=== PATIENT | female | born 1965 | race Caucasian/White ===

== ENCOUNTER 2021-06-25 08:51 | Outpatient (CLI) | payer SELFPAY ==
[2021-06-25 10:43] LABS: Hemoglobin 6.9 g/dL (12.0-15.5); Mean Corpuscular HGB CONC 28.6 g/dL (32.0-36.0); Mean Corpuscular Volume 94.1 fl (81.6-98.3); Mean Platelet Volume 9.7 fl (7.4-10.4); Platelet Count 503 10x3/uL (150-450); RBC Distribution Width 17.2 % (11.5-14.5); Red Blood Cell (RBC) Count 2.56 10x6/uL (3.90-5.03); White Blood Cell (WBC) Count 3.6 10x3/uL (3.5-10.5)
[2021-06-25 10:58] LABS: BHCG - Serum Negative (NEGATIVE); Pregs Control Background? CLEAR/WHITE (CLR/WHITE); Pregs Control Bar Appear? YES (CONTROL BAR)
[2021-06-25 19:08] LABS: SARS-CoV-2 PCR by NAA DETECTED (NotDetected)
== END 2021-06-25 08:52 | disposition home or self-care (01) ==
LOC: CSHLAB 08:51
PROVIDERS: ATTEND Obstetrics & Gynecology
DX: U07.1 COVID-19 (principal); N92.0 Excessive and frequent menstruation with regular cycle; D64.9 Anemia, unspecified; D25.9 Leiomyoma of uterus, unspecified
CPT/HCPCS: 84703; 85027; 86850; 86900; 86901; U0003; U0005

== ENCOUNTER 2021-06-30 07:30 | Day surgery (SDC) | payer OTHER ==
[2021-06-23 15:17] VITALS: BMI 24.7
[2021-06-25 10:43] LABS: Hemoglobin 6.9 g/dL (12.0-15.5); Mean Corpuscular HGB CONC 28.6 g/dL (32.0-36.0); Mean Corpuscular Volume 94.1 fl (81.6-98.3); Mean Platelet Volume 9.7 fl (7.4-10.4); Platelet Count 503 10x3/uL (150-450); RBC Distribution Width 17.2 % (11.5-14.5); Red Blood Cell (RBC) Count 2.56 10x6/uL (3.90-5.03); White Blood Cell (WBC) Count 3.6 10x3/uL (3.5-10.5)
[2021-06-25 10:58] LABS: BHCG - Serum Negative (NEGATIVE); Pregs Control Background? CLEAR/WHITE (CLR/WHITE); Pregs Control Bar Appear? YES (CONTROL BAR)
[2021-06-25 19:08] LABS: SARS-CoV-2 PCR by NAA DETECTED (NotDetected)
[2021-06-30] MEDS ORDERED: Gabapentin 300 MG CAP ONE (08:25)
[2021-06-30] MEDS ORDERED: Lidocaine 1% MPF 2 ML VIAL ONE (08:25)
[2021-06-30] MEDS ORDERED: Famotidine/PF 20 mg/2ml Vial ONE (08:26)
[2021-06-30] MEDS ORDERED: CeleCOXIB 100 MG CAP ONE (08:26)
[2021-06-30] MEDS ORDERED: EPINEPHrine 1 MG/ML AMP ONE (10:30)
[2021-06-30] MEDS ORDERED: Bupivacaine PF 0.5% 30 ML VIAL ONE (10:31)
[2021-06-30] MEDS ORDERED: Lidocaine 1% PF 5 ML VIAL ONE (11:53)
[2021-06-30] MEDS ORDERED: Ondansetron PF 4 MG/2 ML Vial ONE (11:53)
[2021-06-30] MEDS ORDERED: Fentanyl 250 MCG/5 ML VIAL ONE (11:53)
[2021-06-30] MEDS ORDERED: Glycopyrrolate 0.2 MG/ML 5 ML SYRINGE ONE (11:53)
[2021-06-30] MEDS ORDERED: Ketorolac Tromethamine 30 MG/ML VIAL ONE (11:53)
[2021-06-30] MEDS ORDERED: Rocuronium Bromide 10 MG/ML (10ML VIAL) ONE (11:53)
[2021-06-30] MEDS ORDERED: PROPOFOL 20 ML ONE ×2 (11:53→13:54)
[2021-06-30] MEDS ORDERED: Dexamethasone 4 mg/ml Vial ONE (11:53)
[2021-06-30] MEDS ORDERED: Midazolam HCl 2 mg/2 ml Vial ONE (11:53)
[2021-06-30] MEDS ORDERED: Lidocaine 4% PF 5 ML AMP ONE (11:56)
[2021-06-30] MEDS ORDERED: ceFAZolin 2 GM/Dextrose 50 ML IVPB ONE (12:11)
[2021-06-30] MEDS ORDERED: ePHEDrine Sulfate 50 MG/10 ML VIAL ONE (12:42)
[2021-06-30] MEDS ORDERED: Ropivacaine 0.2% 550 ML 750 ML NERVE BLCK SCH (15:00)
[2021-06-30] MEDS ORDERED: Fentanyl 100 MCG/2 ML VIAL ONE (16:13)
[2021-06-30 18:03] LABS: Hemoglobin 8.1 g/dL (12.0-15.5); Mean Corpuscular HGB CONC 29.5 g/dL (32.0-36.0); Mean Corpuscular Hemoglobin 26.5 pg (27.0-33.0); Mean Corpuscular Volume 89.9 fl (81.6-98.3); Mean Platelet Volume 9.7 fl (7.4-10.4); Platelet Count 369 10x3/uL (150-450); RBC Distribution Width 15.7 % (11.5-14.5); Red Blood Cell (RBC) Count 3.06 10x6/uL (3.90-5.03); White Blood Cell (WBC) Count 12.2 10x3/uL (3.5-10.5)
== END 2021-06-30 20:10 | disposition home or self-care (01) ==
LOC: CSHSDC 07:30
PROVIDERS: ATTEND Obstetrics & Gynecology
PROC: 0UT94ZZ Resection of Uterus, Percutaneous Endoscopic Approach (ICD-10-PCS; principal; 2021-06-30)
PROC: 0UT74ZZ Resection of Bilateral Fallopian Tubes, Percutaneous Endoscopic Approach (ICD-10-PCS; principal; 2021-06-30)
DX: D25.9 Leiomyoma of uterus, unspecified (principal); N73.6 Female pelvic peritoneal adhesions (postinfective); D64.9 Anemia, unspecified; U07.1 COVID-19; Z79.3 Long term (current) use of hormonal contraceptives; Z98.51 Tubal ligation status
CPT/HCPCS: 36415; 36430; 84703; 85027; 86850; 86900; 86901; 86922; 88307; A4306; J0171; J0690; J1100; J1885; J2250; J2405; J2704; J2795; J3010; P9016; S0020; S0028; U0003; U0005